=== PATIENT | male | born 1945 | race Caucasian/White ===

== ENCOUNTER 2019-11-27 15:21 | Inpatient (IN) ==
--- NOTE | 2019-11-27 16:25 | Emergency Department Note ---
History of Present Illness General Chief complaint: Abnormal Labs/Diagnostic Testing Stated complaint: DR POSEY, ABNORMAL LAB TEST Time Seen by Provider: 11/27/19 15:56 Source: patient Limitations: no limitations History of Present Illness Provider complaint: Abnormal blood work Onset (ago): hour(s) Location: abdomen Severity: moderate Quality: + other (Elevated creatinine) Relieved By: + none Associated symptoms: + other (Fatigue, abdominal distention, increased appetite, swelling to the feet, urinary incontinence); no chest pain, no cough, no fever/chills, no nausea/vomiting and no shortness of breath This is a 74-year-old male sent in by his doctors office for abnormal blood work done at noon today. The patient states that since October he has been feeling increased fatigue, swelling to his feet and possibly his hands and urinary incontinence. He has also had distention to his abdomen with increased appetite. He had blood work done today which showed an elevated creatinine and was sent to the emergency department. He does state that he had an ultrasound of his abdomen pelvis 3 weeks ago but does not know the results. He is scheduled to see a urologist. He states that he noticed a tick bite and a bull's-eye rash back in September. His doctor sent off a Western blot test for Lyme today. He states his urine is not dark or bloody. He thinks he is urinating about the same amount as he previously was. He does state that he feels thirsty all the time. He denies fever, cough, vomiting, chest pain, shortness of breath or known exposure to COVID-19. Home Medications Home Medications Medication Instructions Recorded Confirmed Type amino ac-vit [id number] 2 tab PO DAILY 03/02/19 11/27/19 History betamethasone dipropionate 0.05 % 1 appln TOP BID PRN 03/02/19 11/27/19 History topical cream ciclopirox 0.77 % topical cream 1 appln TOP BID PRN 03/02/19 11/27/19 History magnesium citrate 100 mg tablet 100 mg PO DAILY 03/02/19 11/27/19 History cholecalciferol (vitamin D3) 0 mcg PO DAILY 11/27/19 11/27/19 History [Vitamin D3] cyanocobalamin (vitamin B-12) 1,500 mcg PO DAILY 11/27/19 11/27/19 History vitamin A 0 unit PO DAILY 11/27/19 11/27/19 History Allergies Allergy/AdvReac Type Severity Reaction Status Date / Time No Known Allergies Allergy Verified 11/27/19 11:12 Past Med/Surg History Medical History Peritonitis Surgical History H/O abdominal surgery History of removal of skin mole Previous back surgery Family History Father Prostate cancer Denies family history of Ovarian cancer Myocardial infarction Breast cancer Colorectal cancer Social History Smoking Status: Never smoker Second Hand Exposure: No; Hx Alcohol Use: Yes Alcohol type: wine Hx Substance Use: No Visual Impairment: Limited Hearing Ability: Normal marital status: Legally Current Living Situation: Alone current occupational status: retired Feels Safe at Home: Yes Dental Care, Regularly: Yes Physical Activity Frequency: 1-2 Times per Week Review of Systems See HPI for pertinent positives & negatives. and A total of 10 systems reviewed and were otherwise negative Physical Exam Vital Signs Vital Signs - 24 hr 11/27/19 15:33 11/27/19 17:53 Temperature 37.6 C H Temperature Source Oral Pulse Rate 89 Pulse Rate [Right Finger] 75 Pulse Rhythm [Right Finger] Regular Pulse Strength [Right Finger] Normal Respiratory Rate 20 16 Respiratory Effort / Characteristics Non-Labored Respiratory Depth Normal Respiratory Pattern Regular Blood Pressure 160/79 H Blood Pressure [Right Arm] 168/75 H Blood Pressure Mean 106 Blood Pressure Mean [Right Arm] 106 Blood Pressure Position Sitting Blood Pressure Position [Right Arm] Lying Pulse Oximetry 99 100 Oxygen Delivery Method Room Air Room Air Sepsis Recent Fever Within 48 Hours No Sepsis New/Unexplained Change in Mental Status No Sepsis Action Taken by Nursing No Action Required Constitutional: Vital signs reviewed. Eyes: Pupils are equal round reactive to light. Conjunctiva are noninjected. ENT: Pharynx is clear without erythema or exudate. Mucous membranes are moist. Neck supple without meningeal signs. Respiratory: Clear to auscultation bilaterally. Breath sounds are equal bilaterally. Cardiovascular: Regular rate and rhythm. No rubs or gallops. GI: Distended abdomen with round masslike lesion about the size of a bowling ball. No significant tenderness. Bowel sounds are present. Musculoskeletal: No edema to the hands. Integumentary: No cyanosis. or jaundice. Neurological: The patient is awake and alert. No focal deficits. Psychiatric: Normal affect. Not anxious appearing. Course Administered Medications Sodium Chloride (Nss 1000ml) 1,000 mls @ 125 mls/hr IV .Q8H CHIN Stop: 12/27/19 16:14 Last Admin: 11/27/19 18:44 Dose: Not Given Documented by: [id number] Medical Decision Making Differential Diagnosis Abdominal mass, hydronephrosis, ABISAI, kidney stone, bladder cancer, prostate cancer Medical Records Attestation: I reviewed the patient's medical records. The patient was seen by by his PCP today. Blood work was ordered today and performed at 1144. Showed a creatinine of over 2. Electrolytes are unremarkable. Western blot testing for Lyme is pending. Home Medications Current Medication List: was personally reviewed by me Laboratory Data Attestation: I reviewed the patient's lab results. Lab Results 11/27/19 Range/Units 17:42 Urine Color Yellow Urine Appearance Clear (Clear) Urine pH 8.0 H (4.5-7.5) Ur Specific [place] 1.006 (1.000-1.030) Urine Protein Negative (Negative) Urine Glucose (UA) Negative (Negative) Urine Ketones Negative (Negative) Urine Blood 2+ H (Negative) Urine Nitrite Negative (Negative) Urine Bilirubin Negative (Negative) Urine Urobilinogen Negative (Negative) Ur Leukocyte Esterase Negative (Negative) Urine WBC (Auto) 1-5 (0-5) /hpf Urine RBC (Auto) 10-30 H (0-4) /hpf U Hyaline Cast (Auto) 1-5 (0-5) /lpf U Epithel Cells (Auto) 5-10 H (0-5) /lpf Urine Bacteria (Auto) Negative (Negative) Imaging Data Radiologist's Impression: CT OF THE ABDOMEN AND PELVIS WITHOUT CONTRAST CLINICAL HISTORY: Abdominal distention and difficulty urinating. Evaluate for mass. COMPARISON STUDY: No previous studies for comparison. TECHNIQUE: Axial images of the abdomen and pelvis were obtained without IV contrast. Images were reviewed in the axial, sagittal, and coronal planes. Automated exposure control was utilized for the study. A dose lowering technique was utilized adhering to the principles of ALARA. FINDINGS: A few left lower lobe pulmonary nodules measure up to 5 mm. Evaluation of the abdomen and pelvis is suboptimal on this unenhanced examination. The liver, spleen, adrenal glands and pancreas are unremarkable. There is no biliary or pancreatic ductal dilatation. There is mild bilateral hydroureteronephrosis. No urinary calculi are identified. Moderate bladder wall thickening is noted. Fernandez balloon is present within the bladder which is partially collapsed. Prostate is moderately enlarged. No pneumatosis, free air or portal venous gas is present. There is minimal infiltration adjacent to the bladder. There is no evidence for a bowel obstruction. No lymphadenopathy is present. There are no suspicious osseous lesions. IMPRESSION: 1. Mild bilateral hydroureteronephrosis likely related to the bladder. Bladder now largely decompressed, containing a Fernandez balloon. Bladder wall thickening which is likely chronic. Enlarged prostate. No urinary calculi. 2. No bowel obstruction. 3. A few left lower lobe pulmonary nodules that measure up to 5 mm. These are likely benign. A follow-up chest CT in 6 months to ensure stability is recommended. ACT 112: Negative or not required by law. Electronically signed by: Moustapha Castaneda M.D. 11/27/2019 5:54 PM Dictated: 11/27/[id number] Transcribed: 11/27/[id number] Blood Pressure Blood Pressure Findings: Elevated blood pressure Blood Pressure Disposition: further management by hospitalist BONITA Coronel I did evaluate the patient as noted above. I did review his blood work done earlier today. I did also get the ultrasound performed of his kidneys on November 10 through the [employer] system. He had moderate bilateral hydronephrosis and the bladder is distended pre-and post void with a postvoid residual of 1975 mL. IV access was established. I did treat him with normal saline IV. The mass in feeling in his abdomen I thought was most likely his bladder given that he had a post void residual of almost 2 L 2 weeks ago on ultrasound. I did order a Fernandez catheter placed. He drained almost 3 L of urine. I did order a urine analysis. There is hematuria without infection. I did order a CT of the abdomen and pelvis. I did review the images myself as well as the radiology report as described above. There is no acute process within the abdomen or pelvis other than the continued bilateral hydroureter ureteral nephrosis that was seen on his previous ultrasound. His prostate is enlarged. Test results were discussed with the patient. He is feeling much better after the Fernandez catheter was placed. I did discuss the case with the hospitalist and counseling case manager. Impression & Plan Acute kidney injury, Obstructed, uropathy Discharge Plan Visit Data Chief Complaint: Abnormal Labs/Diagnostic Testing Stated Complaint: DR POSEY, ABNORMAL LAB TEST ED Provider: Kolby Wheatley Discharge Problem: Acute kidney injury, Obstructed, uropathy Forms Stand Alone Forms: [facility] Prescriptions Prescriptions: No Action ciclopirox 0.77 % cream 1 appln TOP BID PRN (Reason: Unknown) RF: 0 betamethasone dipropionate 0.05 % cream 1 appln TOP BID PRN (Reason: Skin Irritation) RF: 0 magnesium citrate 100 mg tablet 100 mg PO DAILY RF: 0 amino ac-vit C-[id number]-hb9 2 tab PO DAILY RF: 0 cyanocobalamin (vitamin B-12) 1,500 mcg Tablet Extended Release 1,500 mcg PO DAILY RF: 0 cholecalciferol (vitamin D3) [Vitamin D3] 10 mcg (400 unit) Tablet 0 mcg PO DAILY RF: 0 vitamin A 10,000 unit Tablet 0 unit PO DAILY RF: 0 Referrals Referrals: Ricarda Ramirez CRNP [Primary Care Provider] -
--- NOTE | 2019-11-27 17:55 | CT Scan Report ---
CT OF THE ABDOMEN AND PELVIS WITHOUT CONTRAST CLINICAL HISTORY: Abdominal distention and difficulty urinating. Evaluate for mass. COMPARISON STUDY: No previous studies for comparison. TECHNIQUE: Axial images of the abdomen and pelvis were obtained without IV contrast. Images were revi ewed in the axial, sagittal, and coronal planes. Automated exposure control was utilized for the jacob dy. A dose lowering technique was utilized adhering to the principles of ALARA. FINDINGS: A few left lower lobe pulmonary nodules measure up to 5 mm. Evaluation of the abdomen and p subhash is suboptimal on this unenhanced examination. The liver, spleen, adrenal glands and pancreas ar e unremarkable. There is no biliary or pancreatic ductal dilatation. There is mild bilateral hydroure teronephrosis. No urinary calculi are identified. Moderate bladder wall thickening is noted. Fernandez ba lloon is present within the bladder which is partially collapsed. Prostate is moderately enlarged. No pneumatosis, free air or portal venous gas is present. There is minimal infiltration adjacent to the bladder. There is no evidence for a bowel obstruction. No lymphadenopathy is present. There are no s uspicious osseous lesions. IMPRESSION: 1. Mild bilateral hydroureteronephrosis likely related to the bladder. Bladder now largely decompress ed, containing a Fernandez balloon. Bladder wall thickening which is likely chronic. Enlarged prostate. N o urinary calculi. 2. No bowel obstruction. 3. A few left lower lobe pulmonary nodules that measure up to 5 mm. These are likely benign. A follow -up chest CT in 6 months to ensure stability is recommended. ACT 112: Negative or not required by law. Electronically signed by: Moustapha Castaneda M.D. 11/27/2019 5:54 PM
[2019-11-27 17:59] LABS: Appearance Urine Clear (Clear); Bacteria Urine Automated Negative (Negative); Bilirubin Urine Negative (Negative); Blood Urine 2+ (Negative); Color Urine Yellow; Glucose Urine UA Negative (Negative); Ketones Urine Negative (Negative); Leukocyte Esterase Urine Negative (Negative); Nitrite Urine Negative (Negative); Protein Urine Negative (Negative); Specific Gravity Urine 1.006 (1.000-1.030); Urobilinogen Urine Negative (Negative)
--- NOTE | 2019-11-27 17:59 | History & Physical Report ---
Date of Service November 27, 2019 Assessment & Plan (1) Acute kidney injury: Presents with severe urinary retention that is chronic, creatinine now up to 2.1 from baseline of 0.83 last year. BUN only minimally elevated at 22. Secondary to post renal obstruction with prostamegaly. Nonoliguric, electrolytes otherwise normal, blood pressure mildly elevated, with mild peripheral edema -Admit to medical floor -Fernandez catheter inserted and 3.5 L came out within 1 hour, slightly bloody Urinalysis with blood but otherwise normal, no evidence of infection or proteinuria -Follow BMP in the morning -Continue normal saline at 125 mL's per hour -Renally dose medications and avoid nephrotoxins (2) Obstructed, uropathy: Secondary to prostamegaly. With urinary retention of 3.5 L as noted above Fernandez catheter now in place Consult urology Start tamsulosin 0.4 mg p.o. at bedtime Most likely will need to keep Fernandez catheter in for least 1 week (3) Enlarged prostate: As noted above, noted on CT scan and by [facility] by urology Was recommended to have prostate biopsy for elevated PSA with urologist at [facility] (4) Anemia: Hemoglobin down to 9.9 from 13.39 months ago He has not noted any bleeding from anywhere He is vegan but has been for many many years and hemoglobin has never been this low With some scant blood in the urine after Fernandez placement-likely Fernandez trauma Check fecal occult stool, iron studies B12 and folate are normal Follow CBC (5) Urinary incontinence: Secondary to overflow incontinence from severe urinary retention (6) HTN (hypertension), benign: Blood pressures were very well controlled at home on no medication, but now are significantly elevated likely secondary to urinary retention and acute kidney injury No need for treatment at this point Urinary retention has been relieved as above Follow blood pressures (7) Murmur, cardiac: 2/6 systolic murmur at the RUSB. Patient reports he has had a murmur since childhood but unclear if this is the same murmur Consider echocardiogram while here (8) Psoriasis: Stable Uses steroid cream as needed (9) Irritable bowel syndrome: Has intermittent diarrhea alternating with constipation Recommend fiber supplement upon discharge (10) Elevated PSA: As noted above Follow-up with urology for possible prostate biopsy (11) Pulmonary nodule: Incidentally noted left lower lobe nodules up to 5 mm in size on CT scan of the abdomen/pelvis Recommend CT of the chest for follow-up in 6 months Will refer to pulmonary nodule program (12) Tick bite: With a history of tick bite on the wrist in 09/2019 Patient requested Lyme disease testing-Western blot was drawn and is pending No treatment needed at this time unless test returns positive (13) DVT prophylaxis: SCDs only given the scant hematuria Disposition-admit to medical/surgical floor, expected least a 2 midnight stay Full code His friend, Ender, is listed as his emergency contact, however he notes that his HCPOA is another friend of his that lives in another state-his name is Paul Arce at phone number [phone] History of Present Illness Chief Complaint: Fatigue, abdominal distention, sent by PCP for abnormal labs Primary Care Provider: GELA Munoz This patient is a 74-year-old male with a history of HTN, IBS, and psoriasis, who presents to the ER at the direction of his PCP for abnormal labs to include elevated creatinine and low hemoglobin of 9.9. He reports he was bit by a tick on the wrist in September 2019 and thinks that all of the issues that have ensued since then could be from Lyme disease. He notes that on October 15 he started having uncontrollable urinary incontinence to the point where he has been wearing pads in his underwear to collect urine. This is been happening daily since then. He also noticed worsening abdominal distention, edema in his legs, decreased energy and a general feeling of being unwell. He denies any blood in the urine. No constipation. He made himself an appointment to see a urologist at [facility]-Dr. Adhikari-who saw him and performed a digital rectal exam and told him that he had fairly large prostate because of his elevated PSA recommended a prostate biopsy which has not yet been done. The urologist also ordered him a renal ultrasound which he had performed at [facility] and recently had the results told to him that he had bilateral hydronephrosis and a distended bladder-he was advised to follow-up with his urologist about this for which he has a virtual visit scheduled next week. He finally went to see his PCP today because he was just not feeling well and wanted to have a Lyme disease test performed. The Lyme disease test was drawn and the creatinine was elevated at 2.1 and his hemoglobin was low at 9.9. He was sent to the ER by his PCP. The patient denies any bloody stools or vomiting blood, no bleeding of any other kind. He is a vegan and does not eat much iron at all. I asked the ER physician to order Fernandez catheter and immediately 2-1/2 L of urine that was slightly bloody drained out when it was placed. When I went to see him, he already had another liter in the bag to make a total of 3.5 L of urine within the hour. Patient was feeling much better. A CT of the abdomen/pelvis was performed after Fernandez catheter was placed and showed mild bilateral hydronephrosis, moderate prostamegaly, and moderate bladder wall concentric thickening decompressed around Fernandez catheter. He will be admitted for acute kidney injury, urinary retention, and anemia. Allergies Allergy/AdvReac Type Severity Reaction Status Date / Time No Known Allergies Allergy Verified 11/27/19 11:12 Home Medications Home Medications Medication Instructions Recorded Confirmed Type betamethasone dipropionate 0.05 % 1 appln TOP BID PRN 03/02/19 11/27/19 History topical cream ciclopirox 0.77 % topical cream 1 appln TOP BID PRN 03/02/19 11/27/19 History magnesium citrate 100 mg tablet 100 mg PO DAILY 03/02/19 11/27/19 History Dha/Epa Liqiud 75 ml PO DAILY 11/27/19 11/27/19 History Zn-pyg [id number] palmet [Saw 2 cap PO DAILY 11/27/19 11/27/19 History Odanah Complex] cholecalciferol (vitamin D3) 0 mcg PO DAILY 11/27/19 11/27/19 History [Vitamin D3] cyanocobalamin (vitamin B-12) 1,500 mcg PO DAILY 11/27/19 11/27/19 History vitamin A 0 unit PO DAILY 11/27/19 11/27/19 History Past Med/Surg History Medical History Elevated PSA Enlarged prostate HTN (hypertension), benign Irritable bowel syndrome Peritonitis Psoriasis Surgical History H/O abdominal surgery History of appendectomy History of cataract extraction History of removal of skin mole History of ventral hernia repair Previous back surgery Lumbar surgery for cauda equina Family History (Updated 11/27/19 @ 22:03 by Liza Dickens MD) Father Prostate cancer Mother Stroke Denies family history of Ovarian cancer Myocardial infarction Breast cancer Colorectal cancer Social History Smoking Status: Never smoker Second Hand Exposure: No; Hx Alcohol Use: Yes Alcohol type: beer, wine and hard liquor Alcohol Intake Frequency: 4 or More x per/Week Alcohol Intake Frequency Comment: 2-3 glasses of wine per day Hx Substance Use: No Preferred Language: Urdu Communication Ability: Effective Visual Impairment: Limited Hearing Ability: Normal Trampoline Team Coach Required: No Beliefs That Will Affect Care: None marital status: Legally Current Living Situation: Alone current occupational status: retired current occupation: Retired professor and [employer] Feels Safe at Home: Yes Safety Concerns: Feels Safe At This Time Dental Care, Regularly: Yes Physical Activity Frequency: 1-2 Times per Week Assistive Devices: None Review of Systems Review of Systems: All systems reviewed & are unremarkable except as noted in HPI & below Denies fevers or chills, no chest pain or shortness of breath Positive edema, worsening energy level Purposeful weight loss Physical Exam Constitutional: WD/WN, vitals as above Eyes: PERRL, conjunctivae normal, anicteric sclerae ENMT: external ear and nose normal, oropharynx normal Neck: trachea midline, no thyromegaly Respiratory: normal respiratory effort, lungs clear to auscultation Cardiovascular: Rate/Rhythm: regular rate and regular rhythm Heart Sounds: + murmur (2/6 TATIANA at the RUSB) Vessels: no JVD Extremities: + edema (1+ pitting edema of the legs bilaterally) Chest (Breasts): Chest: normal inspection of chest Gastrointestinal (Abdomen): normal bowel sounds, soft, nontender, no hepatosplenomegaly Musculoskeletal: Extremities: extremities normal to inspection; no cyanosis and no clubbing Skin: no rashes, warm and dry Neurologic: moves all extremities and awake; no focal motor deficits Psychiatric: A+Ox3, euthymic affect Genitourinary: Fernandez catheter in place with pink-tinged urine Results & Data Results & Data ([facility]) Vital Signs (Past 12 Hours) Vital Signs Temp Pulse Pulse Resp BP BP Pulse Ox 11/27/19 17:53 75 16 168/75 H 100 11/27/19 15:33 37.6 C H 89 20 160/79 H 99 Laboratory Results 11/27/19 Range/Units 17:42 Urine Color Yellow Urine Appearance Clear (Clear) Urine pH 8.0 H (4.5-7.5) Ur Specific Delta 1.006 (1.000-1.030) Urine Protein Negative (Negative) Urine Glucose (UA) Negative (Negative) Urine Ketones Negative (Negative) Urine Blood 2+ H (Negative) Urine Nitrite Negative (Negative) Urine Bilirubin Negative (Negative) Urine Urobilinogen Negative (Negative) Ur Leukocyte Esterase Negative (Negative) Urine WBC (Auto) 1-5 (0-5) /hpf Urine RBC (Auto) 10-30 H (0-4) /hpf U Hyaline Cast (Auto) 1-5 (0-5) /lpf U Epithel Cells (Auto) 5-10 H (0-5) /lpf Urine Bacteria (Auto) Negative (Negative) Laboratory results reviewed from outpatient: CBC with WBC 6.1, hemoglobin 9.9 down from 13.31-year ago, platelets 256, MCV normal at 92.2 BMP with sodium 142, potassium 4.7, chloride 106, serum bicarbonate 30, BUN 22, creatinine 2.16 up from 0.83, and glucose 94, calcium 8.6 LFTs normal, vitamin B12 558, vitamin D 32.9, TSH 1.[address] abdomen/pelvis images personally reviewed by me and agree with following report: CT OF THE ABDOMEN AND PELVIS WITHOUT CONTRAST CLINICAL HISTORY: Abdominal distention and difficulty urinating. Evaluate for mass. COMPARISON STUDY: No previous studies for comparison. TECHNIQUE: Axial images of the abdomen and pelvis were obtained without IV contrast. Images were reviewed in the axial, sagittal, and coronal planes. Automated exposure control was utilized for the study. A dose lowering technique was utilized adhering to the principles of ALARA. FINDINGS: A few left lower lobe pulmonary nodules measure up to 5 mm. Evaluation of the abdomen and pelvis is suboptimal on this unenhanced examination. The liver, spleen, adrenal glands and pancreas are unremarkable. There is no biliary or pancreatic ductal dilatation. There is mild bilateral hydroureteronephrosis. No urinary calculi are identified. Moderate bladder wall thickening is noted. Fernandez balloon is present within the bladder which is partially collapsed. Prostate is moderately enlarged. No pneumatosis, free air or portal venous gas is present. There is minimal infiltration adjacent to the bladder. There is no evidence for a bowel obstruction. No lymphadenopathy is present. There are no suspicious osseous lesions. IMPRESSION: 1. Mild bilateral hydroureteronephrosis likely related to the bladder. Bladder now largely decompressed, containing a Fernandez balloon. Bladder wall thickening which is likely chronic. Enlarged prostate. No urinary calculi. 2. No bowel obstruction. 3. A few left lower lobe pulmonary nodules that measure up to 5 mm. These are likely benign. A follow-up chest CT in 6 months to ensure stability is recommended. Code Status & VTE Plan Code Status Full code VTE Prophylaxis Plan VTE Prophylaxis will be ordered: Yes PG Care Time/CCT Total # of Minutes Spent Total Time Spent with Patient: Total time spent is greater than 50% in coordination of care (as documented) at patient's floor/unit and/or counseling patient: Coding Level of Care Code 48267 Initial Inpt Care Lvl 3 Diagnoses Acute kidney injury N17.9 Obstructed, uropathy N13.9 Enlarged prostate N40.0 Anemia D64.9 Urinary incontinence R32 HTN (hypertension), benign I10 Murmur, cardiac R01.1 Psoriasis L40.9 Irritable bowel syndrome K58.9 Elevated PSA R97.20 Pulmonary nodule R91.1 Tick bite W57.XXXA DVT prophylaxis Z29.9
[2019-11-27] MEDS: SODIUM CHLORIDE 0.9% 1000ML 1,000 ML IV SCH (18:44)
[2019-11-27] MEDS ORDERED: ONDANSETRON INJ 2 MG/ML 2 ML VIAL IV PRN (19:34)
[2019-11-27] MEDS ORDERED: ACETAMINOPHEN 325 MG TAB PO PRN (19:34)
[2019-11-27] MEDS: TAMSULOSIN HCL 0.4 MG CAP PO SCH (22:49)
[2019-11-28] MEDS: SODIUM CHLORIDE 0.9% 1000ML 1,000 ML IV SCH (00:23)
[2019-11-28 06:02] LABS: Basophils # (auto) 0.01 K/uL (0-0.2); Basophils % (auto) 0.2 %; Eosinophils # (auto) 0.16 K/uL (0-0.5); Hematocrit (blood only) 24.5 % (42-52); Hemoglobin 8.6 g/dL (14.0-18.0); Immature Granulocytes # (auto) 0.01 K/uL (0.00-0.02); Immature Granulocytes % (auto) 0.2 %; Lymphocytes # (auto) 1.24 K/uL (1.2-3.4); Lymphocytes % (auto) 23.3 %; Mean Corpuscular Hemoglobin 31.9 pg (25-34); Mean Corpuscular Hgb Conc 35.1 g/dL (32-36); Mean Corpuscular Volume 90.7 fL (80-100); Mean Platelet Volume 10.9 fL (7.4-10.4); Monocytes # (auto) 0.51 K/uL (0.11-0.59); Monocytes % (auto) 9.6 %; Neutrophils % (auto) 63.7 %; Platelet Count 177 K/uL (130-400); RDW Coefficient of Variation 12.8 % (11.5-14.5); RDW Standard Deviation 42.5 fL (36.4-46.3); White Blood Count 5.33 K/uL (4.8-10.8)
[2019-11-28 06:27] LABS: BUN Creatinine Ratio 10.3 (10-20); Calcium 8.7 mg/dl (8.5-10.1); Creatinine Clr Calc Pharmacy 30.3 ml/min; Est GFR (African American) 37.4; Est GFR (Non-African American) 32.3; Magnesium 2.1 mg/dl (1.8-2.4); Potassium 4.1 mmol/L (3.5-5.1)
[2019-11-28 06:32] LABS: Ferritin 255.9 ng/ml (8-388)
[2019-11-28] MEDS ORDERED: TAMSULOSIN HCL 0.4 MG CAP PO ONE (07:51)
--- NOTE | 2019-11-28 07:51 | Hospitalist Progress Note ---
Date of Service November 28, 2019 Assessment & Plan (1) Acute kidney injury: Presents with severe urinary retention . Secondary to post renal obstruction with prostamegaly. -Gonzalez catheter inserted and 3.5 L came out within 1 hour, slightly bloody Urinalysis with blood but otherwise normal, no evidence of infection or proteinuria Cr did reduce was seem by urology will eventually dc with gonzalez for office follow up -Continue normal saline at 125 mL's per hour -Renally dose medications and avoid nephrotoxins (2) Obstructed, uropathy: Secondary to prostamegaly. With urinary retention of 3.5 L as noted above Gonzalez catheter continues Start tamsulosin 0.4 mg and proscar (3) Enlarged prostate: As noted above, noted on CT scan and by [facility] by urology Will follow up with urology (4) Anemia: Hemoglobin down He has not noted any bleeding from anywhere He is vegan but has been for many many years and hemoglobin has never been this low With some scant blood in the urine after Gonzalez placement-likely Gonzalez trauma iron low normal B12 and folate are normal (5) Urinary incontinence: Secondary to overflow incontinence from severe urinary retention (6) HTN (hypertension), benign: Blood pressures were very well controlled at home on no medication No need for treatment at this point Urinary retention has been relieved as above (7) Murmur, cardiac: 2/6 systolic murmur at the RUSB. Patient reports he has had a murmur sinc e childhood but unclear if this is the same murmur (8) Psoriasis: Stable Uses steroid cream as needed (9) Irritable bowel syndrome: Has intermittent diarrhea alternating with constipation Recommend fiber supplement upon discharge (10) Elevated PSA: As noted above Follow-up with urology for possible prostate biopsy (11) Pulmonary nodule: Incidentally noted left lower lobe nodules up to 5 mm in size on CT scan of the abdomen/pelvis Recommend CT of the chest for follow-up in 6 months Will refer to pulmonary nodule program (12) Tick bite: With a history of tick bite on the wrist in 09/2019 Patient requested Lyme disease testing-Western blot was drawn and is pending No treatment needed at this time unless test returns positive (13) DVT prophylaxis: SCDs only given the scant hematuria Full code His friend, Ender, is listed as his emergency contact, however he notes that his HCPOA is another friend of his that lives in another state-his name is Paul Arce at phone number [phone] Admission and Anticipated Discharge Date Admission Date: November 27, 2019 Subjective this pt is in good spirits, was seen by urology and will have outpt follow up, continue to decompress bladder and evaluate for infection, expect home in next one or two days Review of Systems Review of Systems: Mild distress and fatigue no headache, blurry or double vision no speech or swallowing issues no chest pain, pressure or palpitations no shortness of breath, cough or wheezes Mild suprapubic abdominal pain, nausea or vomiting, diarrhea or constipation no dysuria, hematuria or frequency no focal joint pain or swelling no back pain, CVA tenderness or radicular pain no bruising, bleeding or rashes no focal signs of weakness or numbness or altered sensation no complaints or anxiety or depression. Physical Exam Physical Exam: The patient appeared well nourished and normally developed. Vital signs as documented. Head exam is normocephalic atraumatic no scleral icterus Neck is without JVD, thyromegaly, or carotid bruits. Lungs are clear to auscultation, no focal loss of breath sounds Cardiac exam, Rhythm is regular.. No murmurs, rubs or gallops. Abdominal exam reveals normal bowel sounds, soft mild suprapubic tenderness no CVA no tenderness, no masses Extremities are nonedematous and both pedal pulses are present Neurologic exam is alert and oriented, no focal loss of strength or sensation Skin is without bruises or rashes Psychologically is without concerns for anxiety or depression. Results & Data Results & Data ([facility]) Vital Signs (Past 12 Hours) Vital Signs Temp Pulse Resp BP BP Pulse Ox 11/28/19 07:00 97.3 F L 67 18 134/71 99 11/28/19 04:00 98.2 F 65 18 143/72 H 98 11/28/19 00:00 98.8 F 67 18 150/68 H 99 11/27/19 19:57 99.3 F 88 18 175/84 H 100 PG Care Time/CCT Total # of Minutes Spent Total Time Spent with Patient: Total time spent is greater than 50% in coordination of care (as documented) at patient's floor/unit and/or counseling patient: Coding Level of Care Code 12638 Subseq Hosp Care Lvl 2 Diagnoses Acute kidney injury N17.9 Obstructed, uropathy N13.9 Enlarged prostate N40.0 Anemia D64.9 Urinary incontinence R32 HTN (hypertension), benign I10 Murmur, cardiac R01.1 Psoriasis L40.9 Irritable bowel syndrome K58.9 Elevated PSA R97.20 Pulmonary nodule R91.1 Tick bite W57.XXXA DVT prophylaxis Z29.9
[2019-11-28] MEDS: FINASTERIDE 5 MG TAB PO SCH (09:25)
--- NOTE | 2019-11-28 09:48 | Urology Consultation ---
Date of Consultation November 28, 2019 Assessment & Plan (1) Obstructed, uropathy: Extremely large prostate with obstruction likely insidious nature of development of issues with longtime bladder obstruction leading to severe distention and bilateral obstruction. Patient's renal injury likely secondary to obstruction and retention. Patient had considerable output over 3 L after placement of catheter. Discussed possible bleeding discussed other concerns and issues. Discussed possible causes and concerns. Discussed patient's PSA which is elevated but not severely. Did discuss possible infections. Discussed other concerns and issues. Discussed management options. Discussed at length need for catheterization to decompress bladder after large volume retention. Discussed possible bladder concerns and issues. Discussed need for likely intervention to alleviate obstruction. Patient has been started on tamsulosin which will help some with symptoms however will likely not be a long-term solution due to extreme nature of presentation of issues. We will plan for outpatient follow-up in approximately 7 to 10 days for likely cystoscopy in office. Call if any changes or issues Patient's complicated medical and surgical history was all reviewed and summarized above patient is overall very healthy for age without major problems or concerns. Patient imaging was all reviewed interpreted by myself. Father had prostate cancer. History of Present Illness Attending Physician: Kolby Lundberg MD History of Present Illness Consult for urinary issues with incomplete emptying and large volume bladder retention. Patient has extremely large prostate and found to have over 3 L of urine retaining with bilateral obstruction and significant abdominal issues. Patient has mild to moderate discomfort in pelvis and groin going to back and side in waves. Is dealing with acute illness. Has been deconditioned from this. Has decreased mobility significantly with acute issues. Patient has not had complete return to normal bowel function. Has had some minor urinary issues in the past. Denies bleeding. No severe nausea or vomiting. Currently no fevers. Discussed with patient multifactorial nature of urinary issues, retention, and incomplete bladder emptying. Patient has extremely large prostate and likely majority of issues. Has likely been a longtime insidious development of issues. Discussed concerns and issues. Discussed decreased mobility and trouble voiding. Discussed issues related to deconditioning and weakened state. Discussed possibility that patient had more moderate to severe issues and with the acute illness and deconditioning these issues became more prevalent and obvious. Discussed bowel function and possible issues related to decrease in function and its relation to other pelvic organs and systems. Discussed different medications, will use during hospitalization and their effect on ability to empty. Allergies Allergy/AdvReac Type Severity Reaction Status Date / Time No Known Allergies Allergy Verified 11/27/19 11:12 Home Medications Home Medications Medication Instructions Recorded Confirmed Type betamethasone dipropionate 0.05 % 1 appln TOP BID PRN 03/02/19 11/27/19 History topical cream ciclopirox 0.77 % topical cream 1 appln TOP BID PRN 03/02/19 11/27/19 History magnesium citrate 100 mg tablet 100 mg PO DAILY 03/02/19 11/27/19 History Dha/Epa Liqiud 75 ml PO DAILY 11/27/19 11/27/19 History Zn-pyg [id number] palmet [Saw 2 cap PO DAILY 11/27/19 11/27/19 History Manning Complex] cholecalciferol (vitamin D3) 0 mcg PO DAILY 11/27/19 11/27/19 History [Vitamin D3] cyanocobalamin (vitamin B-12) 1,500 mcg PO DAILY 11/27/19 11/27/19 History vitamin A 0 unit PO DAILY 11/27/19 11/27/19 History Patient History Medical History Elevated PSA Enlarged prostate HTN (hypertension), benign Irritable bowel syndrome Peritonitis Psoriasis Pulmonary nodule Surgical History H/O abdominal surgery History of appendectomy History of cataract extraction History of removal of skin mole History of ventral hernia repair Previous back surgery Lumbar surgery for cauda equina Family History Father Prostate cancer Mother Stroke Denies family history of Ovarian cancer Myocardial infarction Breast cancer Colorectal cancer Social History Smoking Status: Never smoker Second Hand Exposure: No; Hx Alcohol Use: Yes Alcohol type: beer, wine and hard liquor Alcohol Intake Frequency: 4 or More x per/Week Alcohol Intake Frequency Comment: 2-3 glasses of wine per day Hx Substance Use: No Preferred Language: Pashto Communication Ability: Effective Visual Impairment: Limited Hearing Ability: Normal Shirt Marker Required: No Beliefs That Will Affect Care: None marital status: Legally Current Living Situation: Alone current occupational status: retired current occupation: Retired professor and [employer] Feels Safe at Home: Yes Safety Concerns: Feels Safe At This Time Dental Care, Regularly: Yes Physical Activity Frequency: 1-2 Times per Week Assistive Devices: None Review of Systems Review of Systems: All systems reviewed & are unremarkable except as noted in HPI & below Physical Exam Physical Exam: General: Alert and oriented x 3 in no acute distress. Patient is well nourished and well kept. HEENT: Normocephalic Atraumatic. Inspection normal. Cranial Nerves 2-12 Grossly intact. Nares are clear. Neck is supple. Normal inspection of face. Normal inspection of neck. Neurologic: No deficits on inspection. Baseline for motor function and sensory. Psychologic: Normal affect. Respiratory: Nonlabored. No use of accessory muscles. No tachypnea or dyspnea. Cardiovascular: No tachycardia Skin: [place] and Dry. No rashes or visible lesions. Extremities: Moving without issues. No motor deficits on inspection Lymphatics: No edema Abdomen: Soft Non-distended. No acites. No rebound or guarding. Fernandez in place draining urine Results & Data ([facility]) Vital Signs (Past 12 Hours) Vital Signs Temp Pulse Resp BP BP Pulse Ox 11/28/19 07:00 36.3 C L 67 18 134/71 99 11/28/19 04:00 36.8 C 65 18 143/72 H 98 11/28/19 00:00 37.1 C 67 18 150/68 H 99 PG Care Time/CCT Total # of Minutes Spent Total Time Spent with Patient: Total time spent is greater than 50% in coordination of care (as documented) at patient's floor/unit and/or counseling patient: Coding Level of Care Code 33590 Inpt Consult Level 5 Diagnoses Obstructed, uropathy N13.9
[2019-11-28] MEDS: TAMSULOSIN HCL 0.4 MG CAP PO SCH (20:05)
[2019-11-28] MEDS ORDERED: TAMSULOSIN HCL 0.4 MG CAP PO SCH (21:00)
[2019-11-29] MEDS: FINASTERIDE 5 MG TAB PO SCH (08:20)
[2019-11-29 09:13] LABS: Hematocrit (blood only) 26.5 % (42-52); Hemoglobin 9.2 g/dL (14.0-18.0); Mean Corpuscular Hemoglobin 31.3 pg (25-34); Mean Corpuscular Hgb Conc 34.7 g/dL (32-36); Mean Corpuscular Volume 90.1 fL (80-100); Mean Platelet Volume 10.5 fL (7.4-10.4); Platelet Count 183 K/uL (130-400); RDW Coefficient of Variation 12.5 % (11.5-14.5); RDW Standard Deviation 40.9 fL (36.4-46.3); Red Blood Count 2.94 M/uL (4.7-6.1); White Blood Count 4.22 K/uL (4.8-10.8)
[2019-11-29 09:45] LABS: BUN Creatinine Ratio 10.7 (10-20); Calcium 8.3 mg/dl (8.5-10.1); Creatinine Clr Calc Pharmacy 35.5 ml/min; Est GFR (African American) 45.4; Est GFR (Non-African American) 39.1; Potassium 3.9 mmol/L (3.5-5.1)
--- NOTE | 2019-11-29 16:20 | Discharge Summary ---
Date of Service November 29, 2019 Admission HPI Per Admitting Provider This patient is a 74-year-old male with a history of HTN, IBS, and psoriasis, who presents to the ER at the direction of his PCP for abnormal labs to include elevated creatinine and low hemoglobin of 9.9. He reports he was bit by a tick on the wrist in September 2019 and thinks that all of the issues that have ensued since then could be from Lyme disease. He notes that on October 15 he started having uncontrollable urinary incontinence to the point where he has been wearing pads in his underwear to collect urine. This is been happening daily since then. He also noticed worsening abdominal distention, edema in his legs, decreased energy and a general feeling of being unwell. He denies any blood in the urine. No constipation. He made himself an appointment to see a urologist at [facility]-Dr. Adhikari-who saw him and performed a digital rectal exam and told him that he had fairly large prostate because of his elevated PSA recommended a prostate biopsy which has not yet been done. The uro logist also ordered him a renal ultrasound which he had performed at [facility] and recently had the results told to him that he had bilateral hydronephrosis and a distended bladder-he was advised to follow-up with his urologist about this for which he has a virtual visit scheduled next week. He finally went to see his PCP today because he was just not feeling well and wanted to have a Lyme disease test performed. The Lyme disease test was drawn and the creatinine was elevated at 2.1 and his hemoglobin was low at 9.9. He was sent to the ER by his PCP. The patient denies any bloody stools or vomiting blood, no bleeding of any other kind. He is a vegan and does not eat much iron at all. I asked the ER physician to order Gonzalez catheter and immediately 2-1/2 L of urine that was slightly bloody drained out when it was placed. When I went to see him, he already had another liter in the bag to make a total of 3.5 L of urine within the hour. Patient was feeling much better. A CT of the abdomen/pelvis was performed after Gonzalez catheter was placed and showed mild bilateral hydronephrosis, moderate prostamegaly, and moderate bladder wall concentric thickening decompressed around Gonzalez catheter. He will be admitted for acute kidney injury, urinary retention, and anemia. Principal Diagnosis Obstructive uropathy ABISAI resolved Discharge Exam The patient appeared well Vital signs as documented. Lungs are clear to auscultation and appear unlabored Cardiac exam, Rhythm is regular.. No murmurs, rubs or gallops. Abdominal exam reveals normal bowel sounds, soft non tender, no masses We will go home with a Gonzalez and leg bag Extremities are nonedematous and both pedal pulses are normal. Neurologic exam is alert and oriented, no focal loss of strength or sensation Skin is without bruises or rashes Psychologically is without concerns for anxiety or depression. Discharge Data Allergies Allergy/AdvReac Type Severity Reaction Status Date / Time No Known Allergies Allergy Verified 11/27/19 11:12 Consultations 11/27/19 16:29 ED Decision to Admit Stat 11/27/19 19:34 Consult Urology Routine 11/27/19 22:41 Consult Lung Nodule Program Routine Ordered Studies 11/27/19 16:14 CT abd pelvis wo con Stat Hospital Course (1) Acute kidney injury: Presents with severe urinary retention . Secondary to post renal obstruction with prostamegaly. -Gonzalez catheter inserted and 3.5 L came out within 1 hour, slightly bloody, culture negative Urinalysis with blood but otherwise normal, no evidence of infection or proteinuria Cr did reduce was seem by urology will dc with gonzalez for office follow up (2) Obstructed, uropathy: Secondary to prostatomegaly. With urinary retention of 3.5 L as noted above Gonzalez catheter remains at discharge dishcarge home tamsulosin 0.4 mg and proscar (3) Enlarged prostate: As noted above, noted on CT scan and by THEA by urology Will follow up with urology (4) Anemia: Hemoglobin down He has not noted any bleeding from anywhere He is vegan but has been for many many years and hemoglobin has never been this low With some scant blood in the urine after Gonzalez placement-likely Gonzalez trauma iron low normal B12 and folate are normal encourage follow up with pcp for discussion of anemia (5) Urinary incontinence: Secondary to overflow incontinence from severe urinary retention (6) HTN (hypertension), benign: Blood pressures were very well controlled at home on no medication No need for treatment at this point Urinary retention has been relieved as above (7) Murmur, cardiac: 2/6 systolic murmur at the RUSB. Patient reports he has had a murmur since childhood (8) Psoriasis: Stable Uses steroid cream as needed (9) Irritable bowel syndrome: Has intermittent diarrhea alternating with constipation Recommend fiber supplement upon discharge (10) Elevated PSA: As noted above Follow-up with urology for possible cystocopy (11) Pulmonary nodule: Incidentally noted left lower lobe nodules up to [address] mm in size on CT scan of the abdomen/pelvis Recommend CT of the chest for follow-up in 6 months Will refer to pulmonary nodule program (12) Tick bite: With a history of tick bite on the wrist in 09/2019 Patient requested Lyme disease testing-Western blot was drawn and is pending No treatment needed at this time unless test returns positive Total Time Total Time Spent Total Time Spent (In Minutes): It required greater than 30 minutes to prepare this patient for discharge Discharge Plan Discharge Items Patient Disposition: Home - Self-Care Reason For Visit: ABISAI, ANEMIA Discharge Diagnosis: obstructive uropathy, acute kidney injury resolved Activity: Resume your previous activity Non-emergency contact: Primary Care Provider and Urologist Call non-emergency contact if: you have any medication questions and your symptoms worsen Follow-up/Referrals: Ricarda Ramirez CRNP [Primary Care Provider] - Diet: Vegan (no animal product) Addtl Attending Provider Instructions: please keep follow up appointment with urology Pending Studies at Discharge: No Stand-Alone Forms: My [employer], Smoking Cessation Medications and DC Order Prescriptions: New tamsulosin 0.4 mg Capsule 0.4 mg PO HS Qty: 30 RF: 0 finasteride [Proscar] 5 mg Tablet 5 mg PO QAM Qty: 30 RF: 0 Continued ciclopirox 0.77 % cream 1 appln TOP BID PRN (Reason: Unknown) RF: 0 betamethasone dipropionate 0.05 % cream 1 appln TOP BID PRN (Reason: Skin Irritation) RF: 0 magnesium citrate 100 mg tablet 100 mg PO DAILY RF: 0 cyanocobalamin (vitamin B-12) 1,500 mcg Tablet Extended Release 1,500 mcg PO DAILY RF: 0 cholecalciferol (vitamin D3) [Vitamin D3] 10 mcg (400 unit) Tablet 0 mcg PO DAILY RF: 0 vitamin A 10,000 unit Tablet 0 unit PO DAILY RF: 0 Zn-pyg zetl-gsbfkw-vaw palmet Capsule 2 cap PO DAILY RF: 0 Dha/Epa Liqiud liquid 75 ml PO DAILY RF: 0 Discharge Orders: Discharge Order (Routine); Ordered 11/29/19 Ordered By: Kolby Everett/Other Patient Handouts: Discharge Instructions Caring for ... Admission Data Admit Date/Time: 11/27/19 18:38 Attending Provider: Kolby Lundberg Admit Provider: Liza Dickens Primary Care Provider: Ricarda Ramirez Other Providers: Liza Dickens ; Riaz Mcconnell Other Interventions: Discharge Summary Assessment (RN) Last Done: 11/29/19 13:23 Coding Level of Care Code D/C Day Management >30 mins Diagnoses Acute kidney injury N17.9 Obstructed, uropathy N13.9 Enlarged prostate N40.0 Anemia D64.9 Urinary incontinence R32 HTN (hypertension), benign I10 Murmur, cardiac R01.1 Psoriasis L40.9 Irritable bowel syndrome K58.9 Elevated PSA R97.20 Pulmonary nodule R91.1 Tick bite W57.XXXA
== END 2019-11-29 15:07 | disposition home or self-care (01) | DRG 683 ==
LOC: ED 15:21 → 2N 18:38 → SUATTDRO 18:38 → 2N 19:18 → 3W 11-29 02:29

== ENCOUNTER 2020-01-25 08:26 | Observation (INO) ==
--- NOTE | 2020-01-11 12:37 | PAT Medication Instructions ---
Medication Instructions Date of Service January 11, 2020 Home Medications Medication Instructions Recorded finasteride 5 mg tablet 5 mg PO QAM #90 tab 12/31/19 tamsulosin 0.4 mg capsule 0.4 mg PO HS #90 cap 12/31/19 betamethasone dipropionate 0.05 % topical cream 1 appln TOP BID PRN ciclopirox 0.77 % topical cream 1 appln TOP BID PRN finasteride 5 mg tablet 5 mg PO QAM tamsulosin 0.4 mg capsule 0.4 mg PO HS Basis 2 cap PO QAM Dha-Epa 0.75 ml PO QAM Vitamin A 5,000 unit PO QAM cholecalciferol (vitamin D3) 50 mcg PO QAM cyanocobalamin (vitamin B-12) 1,000 mcg PO QAM dnk-kru-ewtlyjumnu agent-vit E 1 cap PO QAM magnesium citrate 100 mg PO QAM Continue as directed betamethasone dipropionate 0.05 % topical cream 1 appln TOP BID PRN* ciclopirox 0.77 % topical cream 1 appln TOP BID PRN* *DO NOT APPLY NEAR SURGICAL SITE WITHIN 24 HOURS OF SURGERY* STOP taking 2 weeks before surgery If surgery is within 2 weeks, stop taking as soon as possible. Basis 2 cap PO QAM Dha-Epa 0.75 ml PO QAM Vitamin A 5,000 unit PO QAM ybi-hsh-dqnblzyplc agent-vit E 1 cap PO QAM DO NOT take the morning of surgery cholecalciferol (vitamin D3) 50 mcg PO QAM cyanocobalamin (vitamin B-12) 1,000 mcg PO QAM magnesium citrate 100 mg PO QAM Take morning of surgery With a small sip of water, OTHERWISE NOTHING TO EAT OR DRINK AFTER MIDNIGHT: finasteride 5 mg tablet 5 mg PO QAM Take evening before surgery tamsulosin 0.4 mg capsule 0.4 mg PO HS Other Notes If you have any questions please call us at [phone] or [phone] or [phone] or [phone]
--- NOTE | 2020-01-13 10:10 | Anesthesiology Consultation ---
Date of Service January 13, 2020 Assessment & Plan (1) Encounter for pre-operative examination: COVID Status: As of 01/12 assessment, patient denies travel to endemic area, known exposure/sick contacts, or symptoms of COVID19. Patient instructed that they and their household members must follow strict social distancing guidelines, wear a mask in public and avoid travel/events/gatherings for 14 days prior to surgery. Preoperative COVID19 testing to be completed prior to surgery per surgeon's arrangements. Patient made aware to self-isolate as much as possible between COVID testing and surgery. Chart Review Chart Review: Acceptable Risk for Surgery and Patient seen in Pre Admission Testing Teaching & Discussion Instructed NPO after midnight before surgery, except medications with 15 cc of water. Medication instructions provided according to the PAT guidelines. History Surgery Operation Date: 01/25/20 12:25 Proposed Procedures p Transurethral Resection Prostate - Riaz Mcconnell, DO Height/Weight Height: 5 ft 8 in Weight: 74.6 kg Allergies Allergy/AdvReac Type Severity Reaction Status Date / Time No Known Allergies Allergy Verified 01/08/20 09:45 Medications Home Medications Medication Instructions Recorded Confirmed Last Taken betamethasone dipropionate 0.05 % 1 appln TOP BID PRN 03/02/19 01/08/20 Unknown topical cream ciclopirox 0.77 % topical cream 1 appln TOP BID PRN 03/02/19 01/08/20 Unknown finasteride 5 mg tablet 5 mg PO QAM #90 tab 12/31/19 01/08/20 Unknown tamsulosin 0.4 mg capsule 0.4 mg PO HS #90 cap 12/31/19 01/08/20 Unknown Basis 2 cap PO QAM 01/08/20 01/08/20 Unknown Dha-Epa 0.75 ml PO QAM 01/08/20 01/08/20 Unknown Vitamin A 5,000 unit PO QAM 01/08/20 01/08/20 Unknown cholecalciferol (vitamin D3) 50 mcg PO QAM 01/08/20 01/08/20 Unknown [Vitamin D3] cyanocobalamin (vitamin B-12) 1,000 mcg PO QAM 01/08/20 01/08/20 Unknown gpf-syx-yxrkorvrkn agent-vit E 1 cap PO QAM 01/08/20 01/08/20 Unknown magnesium citrate 100 mg PO QAM 01/08/20 01/08/20 Unknown Past Medical History Medical History Acute kidney injury HOSPITALIZED 11-27-19 Anemia VEGAN DIET Cardiac murmur I/ on exam at [facility], pt reports having had for many years, denies ever having an echo. Elevated PSA Enlarged prostate Fernandez catheter in place History of high blood pressure Hx of basal cell carcinoma Hx of peritonitis A CHILD Irritable bowel syndrome Psoriasis Pulmonary nodule BEING MONITORED Shoulder pain RT Exercise / Class Metabolic Activity II 4-5 Yardwork/Stairs/Walk up hill (Denies CP or SOB with 1 FOS) Past Family History Family History Father Prostate cancer Mother Stroke Other No family history of adverse response to anesthesia Denies family history of Ovarian cancer Myocardial infarction Breast cancer Colorectal cancer Past Surgical History Surgical History H/O flexible sigmoidoscopy H/O shoulder surgery RT History of appendectomy History of cataract extraction RT/LEFT History of Mohs micrographic surgery for skin cancer TOP OF HEAD History of removal of skin mole History of tonsillectomy History of tooth extraction History of ventral hernia repair Previous back surgery Lumbar surgery for cauda equina ? DETAILS/DISC SURGERY Past Anesthesia History No Hx of Anesthesia Complications and No Family Hx of Anesthesia Complications History of PONV No Hx of PONV and Hx of Motion Sickness (occasionally) Social History Smoking Status: Never smoker Do You Dip or Chew Tobacco: No Hx Alcohol Use: Yes Alcohol type: wine alcohol intake frequency: 0-2 drinks per day (2) Hx Substance Use: No substance use type: does not use Review of Systems Pt denies any recent chest pain, shortness of breath, palpitations, cough, fever, URI, or uncontrolled acid reflux. +mild congestion Physical Exam Vital Signs BP: 150/73 (pt reports this is high for him, usually 110's systolic) P: 67bpm SPO2: 100% RA T: 98.0 F R: 16 ENMT Mouth: + dental restorations (one crown on lower R molar); no chipped teeth and no loose teeth Thyromental Distance: > or= 3.5 Finger Breadths Mallampati Class: II Neck normal visual inspection and + limited neck extension (mildly) Respiratory normal respiratory effort, lungs clear to auscultation Cardiovascular Rate/Rhythm: regular rate and regular rhythm Heart Sounds: + murmur (I/ systolic) Testing Laboratory Results 01/13/20 10:20 01/13/20 10:20 Urine Color Yellow 01/13/20 10:20 Urine Appearance Cloudy (Clear) A 01/13/20 10:20 Urine pH 8.0 (4.5-7.5) H 01/13/20 10:20 Ur Specific Crowell 1.010 (1.000-1.030) 01/13/20 10:20 Urine Protein Negative (Negative) 01/13/20 10:20 Urine Glucose (UA) Negative (Negative) 01/13/20 10:20 Urine Ketones Negative (Negative) 01/13/20 10:20 Urine Nitrite Positive (Negative) A 01/13/20 10:20 Ur Leukocyte Esterase 3+ (Negative) H 01/13/20 10:20 Urine WBC (Auto) >30 /hpf (0-5) H 01/13/20 10:20 Urine RBC (Auto) 5-10 /hpf (0-4) H 01/13/20 10:20 U Hyaline Cast (Auto) 1-5 /lpf (0-5) 01/13/20 10:20 U Epithel Cells (Auto) 5-10 /lpf (0-5) H 01/13/20 10:20 Urine Bacteria (Auto) 4+ (Negative) H 01/13/20 10:20 01/13/20 10:20 Urine Culture - Preliminary Urine,Clean Catch Gram negative bacilli *Chronic anemia, improved from 9.5 on 12/21 labs. Electrocardiogram Date: 01/13/20 Findings: + NSR @ (70bpm) Chest X-Ray Date: 01/13/20 FINDINGS: PA and lateral chest radiographs are correlated with abdominal CT dated 11/27/2019. The cardiomediastinal silhouette is unremarkable. A calcified granuloma is seen in the right upper lobe. Subcentimeter nodules at the lung bases seen on the recent abdominal CT are not visualized by x-ray. There is no airspace consolidation or pleural effusion. There is no pneumothorax. The skeletal structures are osteopenic. The bony thorax appears intact. Degenerative change is seen throughout the thoracic spine. IMPRESSION: No active disease in the chest.
--- NOTE | 2020-01-13 10:56 | XRay Report ---
TWO VIEW CHEST CLINICAL HISTORY: Preoperative examination. FINDINGS: PA and lateral chest radiographs are correlated with abdominal CT dated 11/27/2019. The card iomediastinal silhouette is unremarkable. A calcified granuloma is seen in the right upper lobe. Subc entimeter nodules at the lung bases seen on the recent abdominal CT are not visualized by x-ray. Ther e is no airspace consolidation or pleural effusion. There is no pneumothorax. The skeletal structures are osteopenic. The bony thorax appears intact. Degenerative change is seen throughout the thoracic spine. IMPRESSION: No active disease in the chest. ACT 112: Negative or not required by law. Electronically signed by: James Guajardo M.D. 01/13/2020 10:55 AM
[2020-01-13 11:28] LABS: Basophils # (auto) 0.02 K/uL (0-0.2); Basophils % (auto) 0.3 %; Eosinophils # (auto) 0.19 K/uL (0-0.5); Hematocrit (blood only) 32.7 % (42-52); Hemoglobin 10.7 g/dL (14.0-18.0); Immature Granulocytes # (auto) 0.01 K/uL (0.00-0.02); Immature Granulocytes % (auto) 0.2 %; Lymphocytes # (auto) 1.32 K/uL (1.2-3.4); Lymphocytes % (auto) 21.2 %; Mean Corpuscular Hgb Conc 32.7 g/dL (32-36); Mean Corpuscular Volume 94.8 fL (80-100); Mean Platelet Volume 11.4 fL (7.4-10.4); Monocytes # (auto) 0.47 K/uL (0.11-0.59); Monocytes % (auto) 7.5 %; Neutrophils # (auto) 4.23 K/uL (1.4-6.5); Neutrophils % (auto) 67.8 %; Platelet Count 218 K/uL (130-400); RDW Coefficient of Variation 12.9 % (11.5-14.5); RDW Standard Deviation 44.8 fL (36.4-46.3); Red Blood Count 3.45 M/uL (4.7-6.1); White Blood Count 6.24 K/uL (4.8-10.8)
[2020-01-13 11:37] LABS: Appearance Urine Cloudy (Clear); Bacteria Urine Automated 4+ (Negative); Bilirubin Urine Negative (Negative); Blood Urine 1+ (Negative); Color Urine Yellow; Glucose Urine UA Negative (Negative); Ketones Urine Negative (Negative); Leukocyte Esterase Urine 3+ (Negative); Nitrite Urine Positive (Negative); Urobilinogen Urine Negative (Negative); WBC Urine Automated >30 /hpf (0-5)
[2020-01-13 12:02] LABS: BUN Creatinine Ratio 15.7 (10-20); Calcium 8.8 mg/dl (8.5-10.1); Creatinine Clr Calc Pharmacy 67.1 ml/min; Est GFR (Non-African American) 81.1; Potassium 4.4 mmol/L (3.5-5.1)
[2020-01-13 12:13] LABS: Protein Urine Negative (Negative); Sulfosalicylic Acid Urine Negative (Negative)
--- NOTE | 2020-01-14 10:21 | Electrocardiogram Report ---
Test Reason : Blood Pressure : / mmHG Vent. Rate : 070 BPM Atrial Rate : 070 BPM P-R Int : 152 ms QRS Dur : 084 ms QT Int : 408 ms P-R-T Axes : 077 060 051 degrees QTc Int : 440 ms Normal sinus rhythm Normal ECG No previous ECGs available Confirmed by Akbar Pastrana ([id number]) on 01/14/2020 10:20:51 AM Referred By: Riaz Mcconnell Confirmed By:Akbar Pastrana
[~2020-01-25 08:26] MED LIST: LACTATED RINGER'S 1,000 ML IV SCH; ceFAZolin 2000MG 2,000 MG/15 ML SYR IV SCH
[2020-01-25] MEDS ORDERED: ONDANSETRON INJ 2 MG/ML 2 ML VIAL IV PRN (08:34)
[2020-01-25] MEDS ORDERED: MEPERIDINE HCL 25 MG/ML CARP/VIAL IV PRN (08:34)
[2020-01-25] MEDS ORDERED: PHENYLEPHRINE 100MCG/ML 5ML SYR IV PRN (08:34)
[2020-01-25] MEDS ORDERED: HYDROmorphone INJ 1 MG/ML SYRINGE IV PRN (08:34)
[2020-01-25] MEDS ORDERED: fentaNYL citrate 100 MCG/2 ML VIAL IV PRN (08:34)
[2020-01-25] MEDS ORDERED: ePHEDrine sulfate 50 MG/ML AMP IV PRN (08:34)
[2020-01-25] MEDS ORDERED: LABETALOL HCL IV 5 MG/ML 20ML IV PRN (08:34)
[2020-01-25] MEDS ORDERED: ATROPINE SULFATE 0.1 MG/ML 10ML SYR IV PRN (08:34)
[2020-01-25] MEDS ORDERED: PHENAZOPYRIDINE HCL 200 MG TAB PO PRN (08:54)
[2020-01-25] MEDS ORDERED: MoRPHine SULFATE 2 MG/ML CARP IV PRN (08:54)
[2020-01-25] MEDS ORDERED: BELLADONNA/OPIUM SUPP 60 MG SUPP PR PRN (08:54)
[2020-01-25] MEDS ORDERED: oxyCODONE HCL IR 5 MG TAB (IMMEDIATE RELEASE) PO PRN (08:54)
--- NOTE | 2020-01-25 08:54 | History & Physical Bridge Note ---
Date of Service January 25, 2020 History & Physical Bridge Note I have examined the patient, reviewed the History & Physical and in the interval since the performance of the History & Physical I have noted the following changes of clinical significance: no changes noted
[2020-01-25] MEDS ORDERED: LIDOCAINE HCL 2% 2 ML VIAL/AMP(20MG/ML) INFIL ONE (09:49)
[2020-01-25] MEDS ORDERED: fentaNYL citrate 100 MCG/2 ML VIAL ONE ×2 (09:49→10:09)
[2020-01-25] MEDS ORDERED: PROPOFOL IV EMULSION 10 MG/ML 20 ML VIAL IV ONE (09:49)
[2020-01-25] MEDS ORDERED: MIDAZOLAM HCL 1 MG/ML 2ML VIAL ONE (09:49)
[2020-01-25] MEDS ORDERED: DEXAMETHASONE SOD INJ 4 MG/ML VIAL ONE (10:12)
[2020-01-25] MEDS ORDERED: ONDANSETRON INJ 2 MG/ML 2 ML VIAL ONE (10:12)
[2020-01-25] MEDS ORDERED: ePHEDrine sulfate 50 MG/ML SYR ONE (10:27)
[2020-01-25] MEDS ORDERED: MoRPHine SULFATE 2 MG/ML CARP ONE (10:46)
--- NOTE | 2020-01-25 11:56 | Operative Report ---
PG Post Operative Report Pre & Post Diagnosis Operation Date: 01/25/20 10:05 Pre-Op Diagnosis: Urinary Incontinence, Obstructed, Uropathy Post-Op Diagnosis: Urinary Incontinence, Obstructed, Uropathy I identified the patient and participated in the time-out.: Yes Procedure Operation Date: 01/25/20 10:05 Actual Procedures p Cystoscopy, Transurethral Resection Prostate(Not Applicable) - Riaz Mcconnell DO Surgeon Riaz Mcconnell, II, DO Aerial Photographer None Estimated Blood Loss 10 Findings Consistent with Post-Op Diagnosis Extremely Large Prostate with obstruction. Specimens Prostate adenoma. Drains [address] 24 Fr Catheter Anesthesia Type General Complications none Disposition Disposition: Recovery Room Indications Patient with obstruction due to prostate enlargement. Risks and benefits discussed at length. Description of Procedure Patient was consented and brought back to the operating room. Patient was placed under anesthesia in the supine position and moved to the dorsal lithotomy position. Patient was prepped and draped in the regular sterile fashion. A time out was completed. A 30degree Cystoscope was placed into the bladder and the entire bladder was examined. The UO's were identified as well as the bladder neck, trigone, dome, and the other important landmarks. The prostatic urethra and large lobes/adenoma was assessed and the veru and bladder neck identified and area/size was assessed. The resection scope was placed and the fine bipolar loop was selected. Starting at the 5 and 7 o'clock positions, a channel was created from bladder neck to the veru. The lateral lobes were then resected from the 1 and 11 o'clock positions. The lateral lobes were extremely large and required a great amount of tissue resection to clear a channel. A small amount of dorsal tissue was then resected. The Specimen was removed and sent for analysis. The resection bed and any bleeding areas were fulgurated/cauterized and the entire area inspected. All bleeding was controlled. The bladder was inspected a final time. The bladder was emptied and irrigated. All specimen and debris was removed. The scope was removed with the bladder partially full. A catheter was placed and balloon elevated. This was easily irrigated. The patient was cleaned, aroused from anesthesia, and transferred to the pacu in stable condition having tolerated the procedure well with no complications. I was present and participated in all aspects of the procedure. The patient will be monitored in the PACU until transferred. I attest to the content of the Intraoperative Record and any orders documented therein. Any exceptions are noted below.
--- NOTE | 2020-01-25 12:41 | Anesthesiology Progress Note ---
Date of Service January 25, 2020 Anesthesia Post Procedure Vital Signs Vital Signs: Temp Pulse Pulse Resp BP BP Pulse Ox 01/25/20 12:35 77 16 135/70 100 01/25/20 12:25 83 24 131/71 99 01/25/20 12:15 81 13 138/65 100 01/25/20 12:06 36.1 C L 78 12 113/75 100 01/25/20 09:10 36.8 C 75 18 158/85 H 100 Transfer of Care Handoff Completed per policy Notes Mental Status: alert / awake / arousable Patient Amnestic to Procedure: Yes Nausea / Vomiting: adequately controlled Pain: adequately controlled Airway Patency, RR, SpO2: stable & adequate BP & HR: stable & adequate Hydration State: stable & adequate Anesthetic Complications: no major complications apparent and Pt Satisfied with anesthetic care Notes: The patient is doing well and feels comfortable. He has an erythematous rash over his upper arms and abdomen. The rash blanches. It does not itch or bother him at all. He has no shortness of breath.
[2020-01-25] MEDS: SODIUM CHLORIDE 0.9% 1000ML 1,000 ML IV SCH (13:35)
[2020-01-25] MEDS ORDERED: PNEUMOCOCCAL POLYSACCHARIDES 25 MCG/0.5 ML VIAL/SYR IM ONE (14:00)
[2020-01-25] MEDS ORDERED: PNEUMOCOCCAL ADMINISTRATION CHARGE ONE (14:00)
[2020-01-25 14:16] LABS: Hematocrit (blood only) 32.2 % (42-52); Hemoglobin 11.2 g/dL (14.0-18.0); Mean Corpuscular Hemoglobin 31.9 pg (25-34); Mean Corpuscular Hgb Conc 34.8 g/dL (32-36); Mean Corpuscular Volume 91.7 fL (80-100); Mean Platelet Volume 10.8 fL (7.4-10.4); Platelet Count 166 K/uL (130-400); RDW Coefficient of Variation 12.6 % (11.5-14.5); RDW Standard Deviation 42.3 fL (36.4-46.3); Red Blood Count 3.51 M/uL (4.7-6.1); White Blood Count 5.95 K/uL (4.8-10.8)
[2020-01-25 14:26] LABS: BUN Creatinine Ratio 15.5 (10-20); Calcium 8.3 mg/dl (8.5-10.1); Creatinine Clr Calc Pharmacy 72.6 ml/min; Est GFR (African American) 98.8; Est GFR (Non-African American) 85.2; Potassium 3.8 mmol/L (3.5-5.1)
[2020-01-25] MEDS: ceFAZolin 2000MG 2,000 MG/15 ML SYR IV SCH (17:22)
[2020-01-25] MEDS: DOCUSATE SODIUM 100 MG CAP PO SCH (20:57)
[2020-01-25] MEDS ORDERED: TAMSULOSIN HCL 0.4 MG CAP PO SCH (21:00)
[2020-01-26] MEDS: SODIUM CHLORIDE 0.9% 1000ML 1,000 ML IV SCH (02:10)
[2020-01-26] MEDS: ceFAZolin 2000MG 2,000 MG/15 ML SYR IV SCH (02:11)
[2020-01-26 07:48] LABS: Hemoglobin 10.1 g/dL (14.0-18.0); Mean Corpuscular Hemoglobin 32.1 pg (25-34); Mean Corpuscular Hgb Conc 34.8 g/dL (32-36); Mean Corpuscular Volume 92.1 fL (80-100); Mean Platelet Volume 10.7 fL (7.4-10.4); Platelet Count 170 K/uL (130-400); RDW Coefficient of Variation 12.7 % (11.5-14.5); RDW Standard Deviation 42.6 fL (36.4-46.3); Red Blood Count 3.15 M/uL (4.7-6.1); White Blood Count 7.12 K/uL (4.8-10.8)
--- NOTE | 2020-01-26 08:11 | Urology Progress Note ---
Date of Service January 26, 2020 Assessment & Plan (1) Obstructed, uropathy: 74 yo M POD#1 s/p TURP with Dr. Mcconnell. - Doing well, progressing as expected - Fernandez clear on slow CBI - clamped at 0800, RN aware, will reassess later this AM - Tolerating diet - Patient feels ready for discharge today - Will plan to discharge today if he continues to progress as expected - Fernandez reassessed at 0900 - draining clear yellow with minimal pink tinge. Order placed to d/c CBI - Plan to discharge to home with Fernandez catheter today - Expected clinical course reviewed, all questions answered - Follow-up appointments in place Admission and Anticipated Discharge Date Admission Date: January 25, 2020 Subjective 74 yo M POD#1 s/p TURP with Dr. Mcconnell. Pt seen and examined at bedside this AM. Awake, alert and sitting up in bed. Appears comfortable. No issues overnight. Offers no complaints at this time. Denies suprapubic, abdominal, or flank pain. Tolerating Fernandez catheter. Fernandez catheter intact, patent, and draining clear yellow urine with minimal pink tinge. CBI running on slow. CBI clamped at bedside at 0800. Tolerating diet. No nausea or vomiting. +Flatus. No fever or chills. He feels ready for discharge today. Chart review: Afebrile. Hgb 10.1, WBC 7.12, creatinine pending at time of exam. Review of Systems Constitutional: as per Subjective / HPI Gastrointestinal: as per Subjective / HPI Genitourinary: + as per Subjective / HPI Physical Exam Constitutional: well developed and well nourished; no acute distress and not ill appearing Respiratory: normal respiratory effort and able to speak in complete sentences; no respiratory distress and no labored breathing Cardiovascular: Extremities: no calf tenderness and no pedal edema Gastrointestinal (Abdomen): Inspection/Auscultation: abdomen normal to inspection; abdomen not distended Percussion/Palpation: abdomen soft; abdomen nontender and no guarding Musculoskeletal: Head/Neck/Chest: normocephalic and head atraumatic Psychiatric: Orientation: alert and oriented x 3 Genitourinary: no CVA tenderness Fernandez catheter intact, patent, and draining clear yellow urine with minimal pink tinge. CBI running on slow, clamped by myself at bedside at 0800. Results & Data ([facility]) Vital Signs (Past 12 Hours) Vital Signs Temp Pulse Resp BP Pulse Ox 01/26/20 07:43 37.3 C 53 L 16 127/69 99 01/26/20 03:30 36.7 C 66 16 136/69 98 01/25/20 23:01 36.4 C L 69 16 117/63 97 PG Care Time/CCT Total # of Minutes Spent Total Time Spent with Patient: Total time spent is greater than 50% in coordination of care (as documented) at patient's floor/unit and/or counseling patient: Coding Level of Care Code 45994 Subseq Hosp Care Lvl 2 Diagnoses Obstructed, uropathy N13.9
[2020-01-26 08:18] LABS: BUN Creatinine Ratio 12.4 (10-20); Calcium 8.1 mg/dl (8.5-10.1); Est GFR (African American) 97.8; Est GFR (Non-African American) 84.4
[2020-01-26] MEDS: DOCUSATE SODIUM 100 MG CAP PO SCH (09:03)
--- NOTE | 2020-01-27 13:58 | Discharge Summary ---
Date of Service January 27, 2020 Admission HPI Per Admitting Provider See H&P Admission Exam Per Admitting Provider See H&P Principal Diagnosis Retention. BPH Discharge Exam General: Alert in no acute distress. HEENT: Normocephalic Atraumatic. Inspection normal. Psychologic: Normal affect. Skin: [place] and Dry. No rashes or visible lesions. Abdomen: Soft Non-distended. No rebound or guarding. Discharge Data Allergies Allergy/AdvReac Type Severity Reaction Status Date / Time No Known Allergies Allergy Verified 01/25/20 08:52 Procedures Performed Operation Date: 01/25/20 10:05 Actual Procedures p Transurethral Resection Prostate(Not Applicable) - Riaz Mcconnell DO s Cystoscopy(Not Applicable) - Riaz Mcconnell DO Hospital Course (1) Obstructed, uropathy: 74 yo M POD#1 s/p TURP with Dr. Mcconnlel. - Doing well, progressing as expected - Fernandez clear on slow CBI - clamped at 0800, RN aware, will reassess later this AM - Tolerating diet - Patient feels ready for discharge today - Will plan to discharge today if he continues to progress as expected - Fernandez reassessed at 0900 - draining clear yellow with minimal pink tinge. Order placed to d/c CBI - Plan to discharge to home with Fernandez catheter today - Expected clinical course reviewed, all questions answered - Follow-up appointments in place Total Time Total Time Spent Total Time Spent (In Minutes): 10 minutes Total Time Includes: Examination of the Patient, Discharge Planning, Medication Reconciliation and Communication With Other Providers Discharge Plan Discharge Items Patient Disposition: Home - Self-Care Reason For Visit: Urinary Incontinence, Obstructed, Uropathy Discharge Diagnosis: Urinary Incontinence, Obstructed Uropathy Activity: Per Instructions section Lifting: No more than 25 pounds Bathing Comment: Okay to shower in 1 day, no tub bath or soaking Sexual Activity: Wait until after follow-up appointment Exercise/Sports: Wait until after follow-up appointment Driving/Machine Use: No driving while taking prescription pain medication Non-emergency contact: Urologist Call non-emergency contact if: your symptoms worsen, your pain is not controlled, your pain is worsening, your pain is concerning for you, you have a fever and your temperature is above 101 Follow-up/Referrals: Ricarda Ramirez CRNP [Primary Care Provider] - Riaz Mcconnell DO [Physician] - 02/10/20 4:45 pm [facility],RN [FAKE FOR SCHEDULES] - 02/02/20 9:45 am Diet: Regular Addtl Attending Provider Instructions: Please take all medications as prescribed and keep all follow-ups as scheduled. Please call our office at [phone] with any questions, concerns or need to reschedule appointments for any reason. We are happy to assist you. Tips for your recovery at home: Dont be alarmed by brownish or reddish blood or clots in your urine. This is a result of the procedure. This may occur off and on for weeks to months after the procedure but should continue to improve. Drink plenty of fluids during the day (enough to keep your urine very light colored). This will help keep a healthy flow of urine. Do not lift >25 lbs until your followup Avoid constipation. Please use a stool softener (Colace) for the first two weeks after your procedure Be sure to finish the antibiotics as prescribed. If you go home with a catheter, please wash tubing where it enters your body twice daily with mild soap (Dove or Dial). Once your catheter is removed, expect some blood in your urine and some burning when you urinate. You should have an appointment to have this removed, if you do not please call our office to arrange. Pending Studies at Discharge: Yes Stand-Alone Forms: My [facility], Opioid Pain Management, Smoking Cessation Medications and DC Order Prescriptions: New docusate sodium [Colace] 100 mg capsule 100 mg PO BID Qty: 60 RF: 0 oxycodone-acetaminophen [Percocet] 5-325 mg tablet 1 tab PO TID PRN (Reason: pain) Qty: 7 RF: 0 ciprofloxacin HCl 500 mg tablet 500 mg PO BID 3 Days Qty: 6 RF: 0 Continued tamsulosin 0.4 mg capsule 0.4 mg PO HS Qty: 90 RF: 1 ciclopirox 0.77 % cream 1 appln TOP BID PRN (Reason: RASH ON HANDS) RF: 0 betamethasone dipropionate 0.05 % cream 1 appln TOP BID PRN (Reason: PSORIASIS) RF: 0 cholecalciferol (vitamin D3) [Vitamin D3] 50 mcg (2,000 unit) Capsule 50 mcg PO QAM RF: 0 magnesium citrate 100 mg Tablet 100 mg PO QAM RF: 0 cyanocobalamin (vitamin B-12) 1,000 mcg Capsule 1,000 mcg PO QAM RF: 0 Basis 2 cap PO QAM RF: 0 Dha-Epa 0.75 ml PO QAM RF: 0 Vitamin A 5,000 unit PO QAM RF: 0 Discontinued finasteride [Proscar] 5 mg tablet 5 mg PO QAM Qty: 90 RF: 1 ciprofloxacin HCl 500 mg tablet 500 mg PO BID 5 Days Qty: 10 RF: 0 Discharge Orders: Discharge Order (Routine); Ordered 01/26/20 Ordered By: Sonia Everett/Other Patient Handouts: Discharge Instructions Caring for ... Admission Data Admit Date/Time: 01/25/20 08:54 Attending Provider: Riaz Mcconnell Admit Provider: Riaz Mcconnell Primary Care Provider: Ricarda Ramirez Other Interventions: Discharge Summary Assessment (RN) Last Done: 01/26/20 09:07 Coding Level of Care Code D/C Day Management <30 mins Diagnoses Obstructed, uropathy N13.9
== END 2020-01-26 11:00 | disposition home or self-care (01) ==
LOC: 3N 08:26 → ASU 08:26